=== PATIENT | female | born 1990 | race Caucasian/White ===

== ENCOUNTER 2024-05-03 16:37 | Emergency (ER) | payer SELFPAY ==
--- NOTE | ~2024-05-03 | CT_ITS ---
CLINICAL INDICATION: Obstipation. COMPARISON: None. TECHNIQUE: An enhanced CT of the abdomen and pelvis was performed utilizing multislice spiral [employer]. Photonics ue reconstructed at 5 mm slice thickness. Coronal and sagittal reconstructions were performed. This CT examination was performed utilizing dose reduction techniques. DLP: 700 mGy-cm FINDINGS/OBSERVATIONS: Visualized lower thorax: Bibasilar atelectasis. The remainder of the bilateral lung bases are clear. The heart is of normal size, without pericardial effusion. A small air opacified hiatal hernia is present. Liver: The liver is not enlarged measuring 17 cm in longitudinal dimension. Gallbladder and biliary system: The gallbladder is only minimally distended, without calcified stones . Pancreas: The pancreas enhances homogeneously without ductal dilatation. Spleen: The spleen is not enlarged measuring 8.4 mm in longitudinal dimension. Kidneys: The bilateral kidneys enhance symmetrically. Adrenal glands: Unremarkable Gastrointestinal tract: Significant fecal stasis is identified throughout the colon and distal small bowel. Mural thickening is identified within the right dennise-pelvis within the distal sigmoid colon (a xial series, images 115 through 131), for which direct visualization is recommended. Appendix:The air-filled appendix is of normal caliber (axial sequence image #94) Vasculature: Unremarkable Lymph nodes: No pathologically enlarged or morphologically suspicious lymph nodes are identified with in the retroperitoneum or within the root of the mesentery Pelvic structures:The uterus is anteverted and anteflexed. The right ovary is unremarkable in attenua tion and size for a patient of this age. A 3 cm focus of fluid attenuation is identified within the left ovary, suggesting a simple cyst. The bladder is distended, and otherwise unremarkable. Body wall and musculoskeletal: Rectus diastasis. Small fat-containing umbilical hernia. No significant degenerative disease within the lower thoracic and lumbosacral spines. IMPRESSION: Significant fecal stasis throughout the colon and distal small bowel with a short segment of mural th ickening within the distal sigmoid colon (as detailed above) for which direct visualization is recomm ended as a malignancy may have a similar appearance. Reviewed, dictated and finalized at location A. IMPRESSION: Significant fecal stasis throughout the colon and distal small bowel with a makenzie rt segment of mural thickening within the distal sigmoid colon (as detailed abo ve) for which direct visualization is recommended as a malignancy may have a si milar appearance.
[2024-05-03 16:42] VITALS: BP 124/62; PULSE 76; RESP 17; TEMP 36.4; O2SAT 98
--- NOTE | 2024-05-03 17:04 | ED.ABDPAIN ---
HPI - Abdominal Pain General Chief Complaint: Abdominal Pain Stated Complaint: constipated Time Seen by Provider: 05/03/24 17:04 Focused HPI: This is a 34-year-old female that presents to the emergency department for abdominal pain and constipation. Ongoing over the last couple of weeks. Reports she has not had a bowel movement in 14 days. She has tried stool softeners, laxatives and a suppository without relief. GENERAL: Well-appearing, well-nourished, and in no acute distress. HEAD: Normocephalic, atraumatic. CHEST: Clear to auscultation. ?No respiratory distress. HEART: Regular rate and rhythm.? NEURO: ?Alert and oriented x3. Patient screened in triage and initial orders placed.? ?Additional care and disposition to be based upon?diagnostic testing and treatment. Related Data Allergies Allergy/AdvReac Type Severity Reaction Status Date / Time codeine Allergy Rash Verified 05/03/24 16:38 Course Vital Signs Vital signs: Vital Signs Temperature 97.6 F 05/03/24 16:42 Pulse Rate 76 05/03/24 16:42 Respiratory Rate 17 05/03/24 16:42 Blood Pressure 124/62 05/03/24 16:42 Pulse Oximetry 98 05/03/24 16:42 Temperature 97.6 F 05/03/24 16:42 Pulse Rate 76 05/03/24 16:42 Respiratory Rate 17 05/03/24 16:42 Blood Pressure 124/62 05/03/24 16:42 Pulse Oximetry 98 05/03/24 16:42 Discharge Plan Discharge Instructions: Antibiotic Form Follow-up/Referrals: PHYSICIAN,BRANCH LENDING MANAGER [Primary Care Provider] -
[2024-05-03 17:29] VITALS: BP 117/80; PULSE 73; RESP 14; TEMP 36.6; O2SAT 97
[2024-05-03 17:44] VITALS: BP 99/74; PULSE 70; RESP 16; O2SAT 98
--- NOTE | 2024-05-03 17:45 | ED_ITS ---
HPI - Abdominal Pain General Chief Complaint: Abdominal Pain Stated Complaint: constipated Time Seen by Provider: 05/03/24 17:04 History of Present Illness HPI narrative: 34-year-old female presents to the emergency department for constipation for 14 days. Patient states her last bowel movement was 14 days ago. She has not been able to pass gas for several days. She is reporting diffuse lower abdominal pain. Reports history of tubal ligation. Denies fever, vomiting. She is also reporting some emesis. States she has tried milk of magnesia, enemas and stool softeners at home without relief. Related Data Allergies Allergy/AdvReac Type Severity Reaction Status Date / Time codeine Allergy Rash Verified 05/03/24 16:38 Review of Systems Review of Systems: All systems reviewed & are unremarkable except as noted in HPI and below Exam Narrative: GENERAL: Well-appearing, well-nourished, and in no acute distress. HEAD: Normocephalic, atraumatic. EYES: EOMI. ENT: Nares clear, no rhinorrhea or epistaxis. Mucous membranes moist. NECK: Supple. CHEST: Clear to auscultation. No respiratory distress. HEART: Regular rate and rhythm. ABDOMEN: Quiet bowel sounds. Abdomen soft with tenderness in the lower quadrants and suprapubic region. No rebound or rigidity. No CVA tenderness EXTREMITIES: Normal range of motion. No edema. SKIN: Warm, dry, no rash. NEURO: No focal deficits. Alert and oriented x3 Course Vital Signs Vital signs: Vital Signs Temperature 97.6 F 05/03/24 16:42 Pulse Rate 76 05/03/24 16:42 Respiratory Rate 17 05/03/24 16:42 Blood Pressure 124/62 05/03/24 16:42 Pulse Oximetry 98 05/03/24 16:42 Temperature 97.8 F 05/03/24 17:29 Pulse Rate 70 05/03/24 18:50 Respiratory Rate 16 05/03/24 18:50 Blood Pressure 119/74 05/03/24 18:50 Pulse Oximetry 99 05/03/24 18:50 Oxygen Delivery Room Air 05/03/24 17:44 MDM - Abdominal Pain MDM Narrative Medical decision making narrative: 34-year-old female presents to the emergency department for constipation for 14 days and lower abdominal pain. Triage vitals are stable. She is afebrile nontoxic appearing. Exam significant for the above. CBC without leukocytosis or anemia. Chemistries are largely unremarkable. UA with 6-10 wbc's and trace leuk esterase, no bacteria, no nitrites. She denies signs or symptoms of UTI, will wait for urine culture results. is negative. Lipase is normal. CT abdomen pelvis shows significant fecal stasis throughout the colon and distal small bowel with a short segment of mural thickening within the distal sigmoid colon for which directed visualization is recommended as a malignancy may have a similar appearance. Workup discussed with the patient. She received a soapsuds enema in the ED and subsequently developed a small stool. Her vitals remained stable. Feel she is safe to be discharged home with a bowel regimen. I discussed MiraLax use until she is able to have a bowel movement, stool softener also sent to pharmacy. Advised her to follow-up closely with the GI physician and discuss she may need a colonoscopy for further evaluation. Strict ED return precautions were discussed. She is agreeable to plan verbalized understanding. Discharged in stable condition. Lab Data 05/03/24 17:42 05/03/24 17:42 Labs: Lab Results 05/03/24 05/03/24 05/03/24 Range/Units 17:42 18:48 18:49 WBC 6.4 (4.5-10.0) K/mm3 RBC 3.73 L (4.2-5.4) M/mm3 Hgb 12.9 (12.0-15.0) g/dL Hct 36.1 L (37.0-47.0) % MCV 96.8 (80-100) fl MCH 34.6 H (26-34) pg MCHC 35.7 (32-36) g/dl RDW 11.5 (11.5-14.5) % Plt Count 276 (150-375) k/mm3 MPV 8.9 (7.4-10.4) fl Immature Gran % (Auto) 0.3 (0-0.5) % Neut % (Auto) 66.1 (45.5-73.1) % Lymph % (Auto) 24.9 (18.3-44.2) % [place] % (Auto) 6.5 (2.6-8.5) % Eos % (Auto) 1.7 (0-4.4) % Baso % (Auto) 0.5 (0.2-1.2) % Lymph # (Auto) 1.58 (0.9-3.2) K/mm3 [place] # (Auto) 0.4 (0.1-0.6) K/mm3 Eos # (Auto) 0.1 (0-0.3) K/mm3 Baso # (Auto) 0.0 (0.0-0.1) K/mm3 Abs Immat Gran (auto) 0.02 (0.00-0.031) K/mm3 Absolute Neuts (auto) 4.2 (1.3-6.7) K/mm3 Absolute Nucleated RBC 0.000 (0.0-0.012) K/mm3 Nucleated RBC % 0.0 (0.0-0.2) % Sodium 138 (137-145) mmol/L Potassium 3.6 (3.4-5.0) mmol/L Chloride 100 (98-107) mmol/L Carbon Dioxide 31 H (22-30) mmol/L Anion Gap 7 (4-12) mmol/L BUN 5 L (7-17) mg/dL Creatinine 0.80 (0.7-1.0) mg/dL Estim Creat Clear Calc Not Reportable Estimated GFR > 60 (59 - ) Glucose 92 (65-110) mg/dL Calcium 9.1 (8.4-10.2) mg/dL Total Bilirubin 0.4 (0.2-1.3) mg/dL AST 33 (14-36) U/L ALT 33 (6-35) U/L Alkaline Phosphatase 64 (38-126) U/L Total Protein 7.0 (6.3-8.2) g/dL Albumin 4.1 (3.5-5.1) g/dL Lipase 25 (23-300) U/L Urine Color Yellow (Yellow) Urine Appearance Cloudy H (Clear) Urine pH 6.0 (5.0-9.0) Ur Specific [place] 1.005 (1.001-1.035) Urine Protein Negative (Negative) mg/dL Urine Glucose (UA) Negative (Negative) mg/dL Urine Ketones Negative (Negative) mg/dL Ur Blood (Man) Negative (Negative) Urine Nitrate Negative (Negative) Urine Bilirubin Negative (Negative) Urine Urobilinogen 0.2 (<2.0) mg/dL Leukocyte Esterase Rfl Trace H (Negative) BRYON/UL Urine RBC 0-2 (0-2) /hpf Urine WBC 6-10 H (0-3) /hpf Ur Squamous Epith Cells Moderate (Few) /hpf Urine Bacteria None seen /hpf Urine Casts 0-2 POC Urine HCG, Qual Negative (Negative) Imaging Data Radiologist's impression: ITS Impressions Abdomen/Pelvis CT 05/03/24 19:05 IMPRESSION: Significant fecal stasis throughout the colon and distal small bowel with a short segment of mural thickening within the distal sigmoid colon (as detailed above) for which direct visualization is recommended as a malignancy may have a similar appearance. Discharge Plan Discharge Clinical Impression: Constipation Qualifiers: Constipation type: unspecified constipation type Qualified Code(s): K59.00 - Constipation, unspecified Patient Disposition: Home, Self-Care Condition: Stable Instructions: Antibiotic Form, Constipation (DC) Additional Instructions: Your evaluated in the emergency department for constipation and abdominal pain. Your found have a large amount of stool in her colon and extending into her small intestine. We attempted an enema in the emergency department with minimal relief. I have sent stool softeners and MiraLax to the pharmacy, please take these as directed. Take 1 cap of MiraLax every hour until you initiated bowel movement. Your CT scan showed some thickening of your colon, Follow-up closely with the GI doctor for further evaluation. This may include a colonoscopy. Return to the emergency department if you develop worsening or changing abdominal pain, vomiting, fever, or other concerning symptoms. Prescriptions: New polyethylene glycol 3350 17 gram/dose powder 17 g PO BID Qty: 510 0RF docusate sodium 100 mg capsule 100 mg PO BID Qty: 30 0RF ibuprofen 800 mg tablet 800 mg PO TID PRN (Reason: pain) Qty: 20 0RF Follow-up/Referrals: PHYSICIAN,PULVI MIXER OPERATOR [Primary Care Provider] - George Rodríguez MD [Physician] - 1 Day
[2024-05-03 17:49] LABS: Basophils Percent Auto 0.5 % (0.2-1.2); Eosinophils Absolute Auto 0.1 K/mm3 (0-0.3); Eosinophils Percent Auto 1.7 % (0-4.4); Hematocrit 36.1 % (37.0-47.0); Hemoglobin 12.9 g/dL (12.0-15.0); Immature Granulocyte Absolute 0.02 K/mm3 (0.00-0.031); Immature Granulocyte Percent A 0.3 % (0-0.5); Lymphocytes Absolute Auto 1.58 K/mm3 (0.9-3.2); Lymphocytes Percent Auto 24.9 % (18.3-44.2); Mean Corpuscular HGB Conc 35.7 g/dl (32-36); Mean Corpuscular Hemoglobin 34.6 pg (26-34); Mean Corpuscular Volume 96.8 fl (80-100); Mean Platelet Volume 8.9 fl (7.4-10.4); Monocytes Absolute Auto 0.4 K/mm3 (0.1-0.6); Monocytes Percent Auto 6.5 % (2.6-8.5); Neutrophils Absolute Auto 4.2 K/mm3 (1.3-6.7); Neutrophils Percent Auto 66.1 % (45.5-73.1); Platelet Count Result 276 k/mm3 (150-375); Red Blood Count 3.73 M/mm3 (4.2-5.4); Red Cell Distribution Width 11.5 % (11.5-14.5); White Blood Count 6.4 K/mm3 (4.5-10.0)
[2024-05-03] MEDS: SODIUM CHLORIDE 0.9% IV 1,000 ML 999 ML IV CONT (17:50)
[2024-05-03] MEDS: ONDANSETRON INJ 4 MG/2 ML VIAL IV PUSH (17:51)
[2024-05-03] MEDS: KETOROLAC 15 MG/ML VIAL (*BKC) IV PUSH (17:51)
[2024-05-03 17:59] LABS: Alanine Aminotransferase 33 U/L (6-35); Albumin Level 4.1 g/dL (3.5-5.1); Alkaline Phosphatase 64 U/L (38-126); Anion Gap 7 mmol/L (4-12); Aspartate Amino Transferase 33 U/L (14-36); Bilirubin,Total 0.4 mg/dL (0.2-1.3); Blood Urea Nitrogen 5 mg/dL (7-17); Calcium 9.1 mg/dL (8.4-10.2); Carbon Dioxide 31 mmol/L (22-30); Chloride 100 mmol/L (98-107); Estimated Glomerular Filt Rate > 60; Glucose 92 mg/dL (65-110); Lipase 25 U/L (23-300); Potassium 3.6 mmol/L (3.4-5.0); Sodium 138 mmol/L (137-145)
[2024-05-03 18:50] VITALS: BP 119/74; PULSE 70; RESP 16; O2SAT 99
[2024-05-03 18:52] LABS: BEDSIDEPREGUCG Negative (Negative)
[2024-05-03 18:59] LABS: Add Urine Microscopic? YES; Appearance Urine Cloudy (Clear); Bacteria Urine None Seen /hpf; Bilirubin Urine Negative (Negative); Blood Urine Negative (Negative); Color Urine Yellow (Yellow); Glucose Urine UA Negative (Negative); Ketones Urine Negative (Negative); Leukocyte Esterase Ur Trace LEU/UL (Negative); Nitrate Urine Negative (Negative); Non Pathogenic Casts 0-2; Protein Urine Negative (Negative); RBC Urine 0-2 /hpf (0-2); Specific Grav Ur 1.005 (1.001-1.035); Squamous Epithelial Cell Urine Moderate /hpf (Few); Urobilinogen Urine 0.2 mg/dL (<2.0)
[2024-05-03 21:21] VITALS: BP 110/76; PULSE 76; RESP 16; O2SAT 98
== END 2024-05-03 21:23 | disposition home or self-care (01) ==
PROVIDERS: Physician Assistant; Emergency Provider Physician Assistant
DX: K59.00 Constipation, unspecified (principal)
CPT/HCPCS: 36415; 74177; 80053; 81001; 81025; 83690; 85025; 87086; 96361; 96374; 96375; 99284; J1885; J2405; J7030; Q9967

== ENCOUNTER 2024-05-07 09:15 | Emergency (ER) | payer SELFPAY ==
[2024-05-07 09:11] VITALS: BP 140/90; PULSE 86; RESP 16; TEMP 36.4; O2SAT 97
--- NOTE | 2024-05-07 09:24 | PC.NURSE ---
Patient hostile towards staff. patient states she needs to take her morning medications and this RN informed her that she would have to wait to speak with the doctor. patient also refusing to get undressed and into a gown for assessment.
--- NOTE | 2024-05-07 09:50 | ECG_ITS ---
Test Date: 2024-05-07 10:12:16 Measurements Intervals [place] Rate: 80 P: 35 NH: 159 QRS: 17 QRSD: 90 T: 25 QT: 385 QTc: 444 Interpretive Statements SINUS RHYTHM LOW QRS VOLTAGE IN PRECORDIAL LEADS [QRS DEFLECTION < 1.0 mV IN CHEST LEADS] NONSPECIFIC T-WAVE ABNORMALITY ABNORMAL ECG No previous ECG available for comparison Electronically Signed On 05-07-2024 13:12:33 CDT by Akil Kennedy M.D.
--- NOTE | 2024-05-07 09:59 | PC.NURSE ---
Spoke with Yaya from poison control. He states that if the patient did take 10-100mg tablets of her gabapentin we need to watch for hypotension, decreased SECRET SERVICE AGENT, dyskinesia. Peak time is 1-5 hours with most side effects happening at the 2 hour mar. spoke with provider and labs and EKG were put in. patient showing no symptom at this time
[2024-05-07 10:12] LABS: Basophils Percent Auto 0.3 % (0.2-1.2); Eosinophils Absolute Auto 0.2 K/mm3 (0-0.3); Eosinophils Percent Auto 2.1 % (0-4.4); Hematocrit 38.1 % (37.0-47.0); Hemoglobin 13.5 g/dL (12.0-15.0); Immature Granulocyte Absolute 0.03 K/mm3 (0.00-0.031); Immature Granulocyte Percent A 0.4 % (0-0.5); Lymphocytes Absolute Auto 1.05 K/mm3 (0.9-3.2); Lymphocytes Percent Auto 13.8 % (18.3-44.2); Mean Corpuscular HGB Conc 35.4 g/dl (32-36); Mean Corpuscular Hemoglobin 33.6 pg (26-34); Mean Corpuscular Volume 94.8 fl (80-100); Mean Platelet Volume 8.6 fl (7.4-10.4); Monocytes Absolute Auto 0.5 K/mm3 (0.1-0.6); Monocytes Percent Auto 6.8 % (2.6-8.5); Neutrophils Absolute Auto 5.8 K/mm3 (1.3-6.7); Neutrophils Percent Auto 76.6 % (45.5-73.1); Platelet Count Result 256 k/mm3 (150-375); Red Blood Count 4.02 M/mm3 (4.2-5.4); Red Cell Distribution Width 11.3 % (11.5-14.5); White Blood Count 7.6 K/mm3 (4.5-10.0)
[2024-05-07 10:20] LABS: Add Urine Microscopic? YES; Appearance Urine Cloudy (Clear); Bilirubin Urine Negative (Negative); Blood Urine Negative (Negative); Color Urine Yellow (Yellow); Glucose Urine UA Negative (Negative); Ketones Urine Negative (Negative); Leukocyte Esterase Ur Trace LEU/UL (Negative); Nitrate Urine Negative (Negative); Protein Urine Negative (Negative); Specific Grav Ur 1.007 (1.001-1.035); Urobilinogen Urine 0.2 mg/dL (<2.0); pH Urine 5.5 (5.0-9.0)
[2024-05-07 10:21] LABS: Bacteria Urine None Seen /hpf; Non Pathogenic Casts 0-2; RBC Urine 0-2 /hpf (0-2); Squamous Epithelial Cell Urine Moderate /hpf (Few)
[2024-05-07 10:22] LABS: Alanine Aminotransferase 26 U/L (6-35); Albumin Level 4.2 g/dL (3.5-5.1); Alkaline Phosphatase 69 U/L (38-126); Anion Gap 7 mmol/L (4-12); Aspartate Amino Transferase 32 U/L (14-36); Bilirubin,Total 0.5 mg/dL (0.2-1.3); Blood Urea Nitrogen 3 mg/dL (7-17); Carbon Dioxide 30 mmol/L (22-30); Chloride 103 mmol/L (98-107); Estimated Glomerular Filt Rate > 60; Glucose 103 mg/dL (65-110); Potassium 3.8 mmol/L (3.4-5.0); Sodium 140 mmol/L (137-145)
[2024-05-07 10:22] LABS: Lactic Acid Reflex 0.8 mmol/L (0.7-2.0)
[2024-05-07 10:24] LABS: Acetaminophen < 10 ug/mL (10-30); Ethanol < 10 mg/dL (<10); Salicylate < 1.0 mg/dL (2-20)
[2024-05-07 10:29] LABS: Amphetamine Screen Urine Negative (Negative); Barbiturate Screen Urine Negative (Negative); Benzodiazepines Screen Urine Positive (Negative); Cannabinoid Screen Urine Positive (Negative); Cocaine Screen Urine Negative (Negative); Methadone Screen Urine Negative (Negative); Opiate Screen Urine Negative (Negative); Phencyclidine Screen Urine Negative (Negative)
[2024-05-07 10:38] LABS: Prothrombin Time 13.4 Seconds (11.1-14.7)
[2024-05-07 10:39] LABS: Partial Thromboplastin Time 33.7 Seconds (22.3-36.8)
--- NOTE | 2024-05-07 11:03 | PC.NURSE ---
Patient pressed call light and asked to speak with nurse. when this RN walked into the room she asks How long is this going to take? I have my ride outside waiting? . this RN informed her that I am unable to give her a time frame at this time. she states she wants to leave AMA. i explained to the patient the risks of leaving if she did take 10 gabapentin tablets and she states she only took 2 this morning and did not overdose. patient denies SI/HI to this RN and provider. patient A&Ox4, ambulatory and all vitals are stable at time of leaving. patient verbalized understanding of risks of leaving AMA of which are hypotension and even . patient verbalized understanding and ambulated out of department with steadyg[facility]. provider attempted to speak with patient and patient told provider she did not take 10 pills.
--- NOTE | 2024-05-07 11:04 | ED.OVERDOSE ---
HPI - Overdose General Chief Complaint: Overdose Stated Complaint: accidental OD on gabapentin Time Seen by Provider: 05/07/24 09:16 History of Present Illness HPI Narrative: The patient is a 34-year-old female who presents ER from [facility] for the possibility of an overdose. Patient was being discharged today after they discovered she had been stealing medications. Patient was disappointed in herself because she had been rehabbing from alcoholism. She told them that she was suicidal and had taken extra medication out of anger. EMS reports she may have taken 10 tabs of 100 mg gabapentin. Patient reports she typically takes 200 mg 4 times a day and had been taking an extra 200 mg each day when she was dealing it from the cart. Reports she is not actively suicidal. She has not had any suicidal issues since she was a teenager. Related Data Allergies Allergy/AdvReac Type Severity Reaction Status Date / Time codeine Allergy Rash Verified 05/03/24 16:38 Review of Systems Review of Systems: All systems reviewed & are unremarkable except as noted in HPI and below Constitutional: Constitutional: Reports no additional constitutional complaints Cardiovascular: Cardiovascular: Reports no additional cardiovascular complaints Respiratory: Respiratory: Reports no additional respiratory complaints Gastrointestinal: Gastrointestinal: Reports no additional gastrointestinal complaints PMFSH Past Medical History Medical History (Updated 05/07/24 @ 11:11 by Yrn Sher MD) Healthy female adult Surgical History Surgical History (Updated 05/07/24 @ 11:08 by Yrn Sher MD) No pertinent past surgical history Social History Social History Substance use type: prescription drug Exam Narrative: GENERAL: Well-appearing, well-nourished, and in no acute distress. HEAD: Normocephalic, atraumatic. ENT: Mucous membranes moist. CHEST: Clear to auscultation. No respiratory distress. HEART: Regular rate and rhythm. Normal peripheral pulses. ABDOMEN: Soft, nontender, nondistended. EXTREMITIES: Normal range of motion. No edema. SKIN: Warm, dry, no rash. NEURO: N Alert and oriented x3. PSYCH: Normal mood and affect. Course Course Emergency Course: Patient did not want waiting longer. She denies being suicidal. She reports she was just angry and spout off to make people mad. She has only taken 2 gabapentin said day and denies taking 10. She reports she has just taken 2 extra is each of the last 5 days. According to poison control if patient had in fact taking 10 we be seen the peak affects at this time and she is experiencing no sedation or confusion or dizziness. She is alert orient x4 and has signed AMA paperwork. I have interviewed and examined the patient. I have determined that the patient has the capacity to understand the information relevant to their care. The patient also understands the consequences of the various options after we discussed relevant information. I feel that the patient is able to understand the relevant information and responds appropriately to questions. I have attempted to persuade the patient to stay to receive care. The patient understands by leaving there is a possibility of , disability, or serious injury. Despite the above information the patient has made the decision to leave against medical advice. I have attempted to persuade the patient to follow up with a physician GEOVANI. I have also notified the patient they may return at any time to the ED for further care. Vital Signs Vital signs: Vital Signs Temperature 97.6 F 05/07/24 09:11 Pulse Rate 86 05/07/24 09:11 Respiratory Rate 16 05/07/24 09:11 Blood Pressure 140/90 05/07/24 09:11 Pulse Oximetry 97 05/07/24 09:11 Oxygen Delivery Room Air 05/07/24 09:11 Temperature 97.6 F 05/07/24 09:11 Pulse Rate 86 05/07/24 09:11 Respiratory Rate 16 05/07/24 09:11 Blood Pressure 140/90 05/07/24 09:11 Pulse Oximetry 97 05/07/24 09:11 Oxygen Delivery Room Air 05/07/24 09:22 MDM - Overdose Lab Data 05/07/24 10:05 05/07/24 10:04 Labs: Lab Results 05/07/24 05/07/24 Range/Units 10:04 10:05 WBC 7.6 (4.5-10.0) K/mm3 RBC 4.02 L (4.2-5.4) M/mm3 Hgb 13.5 (12.0-15.0) g/dL Hct 38.1 (37.0-47.0) % MCV 94.8 (80-100) fl MCH 33.6 (26-34) pg MCHC 35.4 (32-36) g/dl RDW 11.3 L (11.5-14.5) % Plt Count 256 (150-375) k/mm3 MPV 8.6 (7.4-10.4) fl Immature Gran % (Auto) 0.4 (0-0.5) % Neut % (Auto) 76.6 H (45.5-73.1) % Lymph % (Auto) 13.8 L (18.3-44.2) % [place] % (Auto) 6.8 (2.6-8.5) % Eos % (Auto) 2.1 (0-4.4) % Baso % (Auto) 0.3 (0.2-1.2) % Lymph # (Auto) 1.05 (0.9-3.2) K/mm3 [place] # (Auto) 0.5 (0.1-0.6) K/mm3 Eos # (Auto) 0.2 (0-0.3) K/mm3 Baso # (Auto) 0.0 (0.0-0.1) K/mm3 Abs Immat Gran (auto) 0.03 (0.00-0.031) K/mm3 Absolute Neuts (auto) 5.8 (1.3-6.7) K/mm3 Absolute Nucleated RBC 0.000 (0.0-0.012) K/mm3 Nucleated RBC % 0.0 (0.0-0.2) % PT 13.4 (11.1-14.7) Seconds INR 1.0 APTT 33.7 (22.3-36.8) Seconds Sodium 140 (137-145) mmol/L Potassium 3.8 (3.4-5.0) mmol/L Chloride 103 (98-107) mmol/L Carbon Dioxide 30 (22-30) mmol/L Anion Gap 7 (4-12) mmol/L BUN 3 L (7-17) mg/dL Creatinine 0.80 (0.7-1.0) mg/dL Estim Creat Clear Calc Not Reportable Estimated GFR > 60 (59 - ) Glucose 103 (65-110) mg/dL Lactic Acid 0.8 (0.7-2.0) mmol/L Calcium 9.0 (8.4-10.2) mg/dL Total Bilirubin 0.5 (0.2-1.3) mg/dL AST 32 (14-36) U/L ALT 26 (6-35) U/L Alkaline Phosphatase 69 (38-126) U/L Total Protein 8.0 (6.3-8.2) g/dL Albumin 4.2 (3.5-5.1) g/dL TSH 2.560 (0.465-4.680) uIU/mL Urine Color Yellow (Yellow) Urine Appearance Cloudy H (Clear) Urine pH 5.5 (5.0-9.0) Ur Specific [place] 1.007 (1.001-1.035) Urine Protein Negative (Negative) mg/dL Urine Glucose (UA) Negative (Negative) mg/dL Urine Ketones Negative (Negative) mg/dL Ur Blood (Man) Negative (Negative) Urine Nitrate Negative (Negative) Urine Bilirubin Negative (Negative) Urine Urobilinogen 0.2 (<2.0) mg/dL Leukocyte Esterase Rfl Trace H (Negative) BRYON/UL Urine RBC 0-2 (0-2) /hpf Urine WBC 6-10 H (0-3) /hpf Ur Squamous Epith Cells Moderate (Few) /hpf Urine Bacteria None seen /hpf Urine Casts 0-2 Salicylates < 1.0 L (2-20) mg/dL Urine Opiates Screen Negative (Negative) Urine Methadone Screen Negative (Negative) Acetaminophen < 10 L (10-30) ug/mL Ur Barbiturates Screen Negative (Negative) Ur Phencyclidine Scrn Negative (Negative) Ur Amphetamine Screen Negative (Negative) U Benzodiazepines Scrn Positive A (Negative) Urine Cocaine Screen Negative (Negative) U Cannabinoids Screen Positive A (Negative) Ethyl Alcohol < 10 (<10) mg/dL ECG Data EKG #1: ECG completion date: 05/07/24 ECG completion time: 10:12 EKG Interpretation: normal rate (80), sinus rhythm, no ectopy, normal QRS, normal QT and NL axis Discharge Plan Discharge Clinical Impression: Anger reaction Patient Disposition: Left Against Medical Advice Condition: Stable Prescriptions: No Action polyethylene glycol 3350 17 gram/dose powder 17 g PO BID Qty: 510 0RF docusate sodium 100 mg capsule 100 mg PO BID Qty: 30 0RF ibuprofen 800 mg tablet 800 mg PO TID PRN (Reason: pain) Qty: 20 0RF Follow-up/Referrals: PHYSICIAN,SUPERVISOR METER REPAIR SHOP [Primary Care Provider] -
== END 2024-05-07 11:07 | disposition left against medical advice (07) ==
LOC: ANHED 09:31
PROVIDERS: Emergency Provider Emergency Medicine
DX: R45.4 Irritability and anger (principal)
CPT/HCPCS: 36415; 80053; 80143; 80179; 80307; 81001; 82077; 83605; 84443; 85025; 85610; 85730; 87086; 93005; 99283